=== PATIENT | female | born 1970 | race African-American/Black ===

== ENCOUNTER 2018-05-28 12:44 | Emergency (ER) | payer MEDICAID ==
[~2018-05-28] VITALS: Ht 170.2 cm; Wt 75.0 kg
[2018-05-28] MEDS ORDERED: ONDANSETRON HCL 4MG/2ML INJ IV STA (13:23)
[2018-05-28] MEDS ORDERED: KETOROLAC 30MG/ML VIAL IV STA (13:23)
[2018-05-28 13:33] LABS: CLARITY URINE CLEAR (CLEAR); COLOR URINE YELLOW (YELLOW); KETONES URINE NEGATIVE (NEGATIVE); LEUKOCYTE ESTERASE URINE NEGATIVE (NEGATIVE); NITRITE URINE NEGATIVE (NEGATIVE); OCCULT BLOOD URINE TRACE (NEGATIVE); PH URINE >=9.0 (4.5-8.0); PROTEIN URINE NEGATIVE (NEGATIVE); SPECIFIC GRAVITY URINE 1.013 (1.005-1.030); UROBILINOGEN URINE 0.2 E.U./dL (0.2-1.0)
[2018-05-28 15:30] LABS: BASOPHILS % 0.9 % (0.0-2.0); EOSINOPHILS % 2.8 % (0.0-5.0); HEMATOCRIT. 35.7 % (36.0-48.0); HEMOGLOBIN. 12.1 g/dL (12.0-16.0); LYMPHOCYTES % 32.3 % (20.0-50.0); MEAN CORPUSCULAR HEMOGLOBIN 30.2 pg (28.0-32.0); MEAN CORPUSCULAR VOLUME 89.2 fL (81.0-99.0); MEAN PLATELET VOLUME 9.2 fl (7.4-10.4); PLATELET 293 x1000/uL (130-400); RED CELL DISTRIBUTION WIDTH 16.5 % (11.6-14.6)
[2018-05-28 15:34] LABS: CHLORIDE 104 mEq/L (98-107)
[2018-05-28 15:40] LABS: PROTHROMBIN TIME 9.9 sec (9.1-11.1)
[2018-05-28 16:15] LABS: HCG SCREEN NEGATIVE
[2018-05-28] MEDS ORDERED: DICYCLOMINE 10 MG/5 ML ORAL SYR PO STA (16:38)
[2018-05-28] MEDS ORDERED: MAGNESIUM/ALUMINUM HYDROXIDE/SIMETHICONE 30ML UDC PO STA (16:38)
[2018-05-28] MEDS ORDERED: VISCOUS LIDOCAINE 2% 15 ML UDC PO STA (16:38)
[2018-05-28] MEDS ORDERED: TRAMADOL 50MG TABLET PO ONE (16:45)
[2018-05-28 17:13] VITALS: BP 156/80
== END 2018-05-28 17:25 | disposition home or self-care (01) ==
LOC: ER 12:44
DX: K21.9 Gastro-esophageal reflux disease without esophagitis (principal)
CPT/HCPCS: 36415; 80053; 81003; 81025; 83690; 84703; 85025; 85610; 96374; 96375; 99284; J1885; J2405

== ENCOUNTER 2019-01-22 18:15 | Emergency (ER) | payer MEDICAID ==
[~2019-01-22] VITALS: Ht 170.2 cm; Wt 73.8 kg
[2019-01-22] MEDS ORDERED: ACETAMINOPHEN 500MG TABLET PO ONE (21:15)
[2019-01-22] MEDS ORDERED: FAMOTIDINE 20MG TABLET PO NR (21:15)
[2019-01-22] MEDS ORDERED: KETOROLAC 60MG/2ML VIAL IM ONE (21:15)
[2019-01-22] MEDS ORDERED: FAMOTIDINE 20MG TABLET PO ONE (21:30)
[2019-01-22 21:42] VITALS: BP 12/80
== END 2019-01-22 21:42 | disposition home or self-care (01) ==
LOC: ER 18:15
DX: K29.70 Gastritis, unspecified, without bleeding (principal); D17.9 Benign lipomatous neoplasm, unspecified; G44.209 Tension-type headache, unspecified, not intractable; F17.200 Nicotine dependence, unspecified, uncomplicated
CPT/HCPCS: 99283; J1885

== ENCOUNTER 2020-10-03 03:07 | Emergency (ER) | payer MEDICAID ==
[~2020-10-03] VITALS: Ht 170.2 cm; Wt 73.0 kg
[2020-10-03] MEDS ORDERED: KETOROLAC 60MG/2ML VIAL IM ONE (03:30)
[2020-10-03] MEDS ORDERED: TRAMADOL 50MG TABLET PO ONE (03:30)
[2020-10-03] MEDS ORDERED: KETOROLAC 30MG/ML VIAL IV ONE (04:30)
[2020-10-03] MEDS ORDERED: TRAM-529 MT (06:02)
[2020-10-03 06:17] VITALS: BP 132/80
== END 2020-10-03 06:44 | disposition home or self-care (01) ==
LOC: ER 03:07
DX: G44.319 Acute post-traumatic headache, not intractable (principal); F07.81 Postconcussional syndrome; V49.59XA Passenger injured in collision with other motor vehicles in traffic accident, initial encounter; Y93.89 Activity, other specified; Y92.488 Other paved roadways as the place of occurrence of the external cause; R03.0 Elevated blood-pressure reading, without diagnosis of hypertension
CPT/HCPCS: 70450; 81025; 93005; 96372; 96374; 99284; J1885

== ENCOUNTER 2021-10-04 02:32 | Emergency (ER) | payer MEDICAID ==
[~2021-10-04] VITALS: Ht 170.2 cm; Wt 79.0 kg
[~2021-10-04 02:32] MED LIST: TRAM-529 MT
[2021-10-04] MEDS ORDERED: ONDANSETRON HCL 4MG/2ML INJ IV STA (04:00)
[2021-10-04] MEDS ORDERED: MORPHINE SULFATE 4 MG/ML CPJ (NOT FOR IM USE) IV STA (04:00)
[2021-10-04] MEDS ORDERED: SODIUM CHLORIDE 0.9% 1,000 ML IV ONE (04:00)
[2021-10-04] MEDS ORDERED: DIPHENHYDRAMINE 50MG/ML VIAL IV ONE (04:15)
[2021-10-04 04:19] LABS: BASOPHILS % 0.8 % (0.0-2.0); EOSINOPHILS % 3.2 % (0.0-5.0); HEMATOCRIT. 35.8 % (36.0-48.0); HEMOGLOBIN. 12.2 g/dL (12.0-16.0); LYMPHOCYTES % 29.5 % (20.0-50.0); MEAN CORPUSCULAR VOLUME 81.9 fL (81.0-99.0); MEAN PLATELET VOLUME 9.2 fl (7.4-10.4); MONOCYTES % 7.6 % (2.0-8.0); NEUTROPHILS % 58.9 % (40.0-76.0); PLATELET 331 x1000/uL (130-400); RED BLOOD CELL COUNT 4.36 mill/uL (4.2-5.4); RED CELL DISTRIBUTION WIDTH 17.3 % (11.6-14.6)
[2021-10-04 04:27] LABS: CHLORIDE 107 mEq/L (98-107)
[2021-10-04 05:21] LABS: CLARITY URINE CLEAR (CLEAR); COLOR URINE YELLOW (YELLOW); KETONES URINE 1+ (NEGATIVE); LEUKOCYTE ESTERASE URINE NEGATIVE (NEGATIVE); NITRITE URINE NEGATIVE (NEGATIVE); OCCULT BLOOD URINE NEGATIVE (NEGATIVE); PH URINE 6.5 (4.5-8.0); PROTEIN URINE NEGATIVE (NEGATIVE); UROBILINOGEN URINE 0.2 E.U./dL (0.2-1.0)
[2021-10-04 06:01] VITALS: BP 120/84
== END 2021-10-04 06:00 | disposition home or self-care (01) ==
LOC: ER 02:32
DX: R10.13 Epigastric pain (principal); R51.9 Headache, unspecified; R94.31 Abnormal electrocardiogram [ECG] [EKG]
CPT/HCPCS: 36415; 71045; 74176; 80053; 81003; 83690; 83880; 84484; 85025; 93005; 96361; 96374; 96375; 99285; J1200; J2270; J2405; J7030

== ENCOUNTER 2022-10-05 15:17 | Emergency (ER) | payer MEDICAID ==
[~2022-10-05] VITALS: Ht 170.2 cm; Wt 83.6 kg
[2022-10-05 15:58] VITALS: BP 129/78
[2022-10-05 16:14] LABS: BASOPHILS % 0.4 % (0.0-2.0); EOSINOPHILS % 2.2 % (0.0-5.0); HEMATOCRIT. 33.7 % (36.0-48.0); HEMOGLOBIN. 11.4 g/dL (12.0-16.0); LYMPHOCYTES % 29.4 % (20.0-50.0); MEAN CORPUSCULAR HEMOGLOBIN 27.1 pg (28.0-32.0); MEAN CORPUSCULAR VOLUME 80.4 fL (81.0-99.0); MEAN PLATELET VOLUME 9.4 fl (7.4-10.4); MONOCYTES % 9.4 % (2.0-8.0); NEUTROPHILS % 58.6 % (40.0-76.0); PLATELET 329 x1000/uL (130-400); RED BLOOD CELL COUNT 4.19 mill/uL (4.2-5.4); RED CELL DISTRIBUTION WIDTH 17.5 % (11.6-14.6)
[2022-10-05 16:17] LABS: CHLORIDE 110 mEq/L (98-107)
[2022-10-05] MEDS ORDERED: MAGNESIUM/ALUMINUM HYDROXIDE/SIMETHICONE 30ML UDC PO STA (19:49)
[2022-10-05] MEDS ORDERED: DICYCLOMINE 10 MG/5 ML ORAL SYR PO STA (19:49)
[2022-10-05] MEDS ORDERED: DIPHENHYDRAMINE 50MG/ML VIAL IM ONE (20:00)
[2022-10-05] MEDS ORDERED: FAMOTIDINE 20MG TABLET PO ONE (20:00)
[2022-10-05] MEDS ORDERED: DICYCLOMINE HCL 10MG CAPSULE PO NR (20:45)
== END 2022-10-05 21:32 | disposition left against medical advice (07) ==
LOC: ER 15:31
DX: R10.84 Generalized abdominal pain (principal)
CPT/HCPCS: 36415; 80053; 83690; 84484; 85025; 93005; 96372; 99284; J1200